=== PATIENT | female | born 1990 | race American Indian/Alaskan Native ===

== ENCOUNTER 2016-08-22 16:37 | Emergency (ER) | payer SELFPAY ==
[2016-08-22 17:48] VITALS: BP 115/74
[2016-08-22 20:24] LABS: Basophils % (Auto) 0.8 % (0.0-1.8); Hematocrit 44.5 % (30.3-42.9); Hemoglobin 14.2 gm/dl (10.1-14.3); Mean Corpuscular HGB Conc 32 % (30-34); Mean Corpuscular Volume 74 fl (79-97); Platelet Count 344 K/mm3 (140-440); Red Cell Distribution Width 16.7 % (13.2-15.2); White Blood Count 10.7 K/mm3 (4.5-11.0)
[2016-08-22 20:25] LABS: Mean Corpuscular Hemoglobin 24 pg (28-32)
[2016-08-22 20:34] LABS: Anion Gap 18 mmol/L; BUN/Creatinine Ratio 7.14; Blood Urea Nitrogen 5 mg/dL (7-17); Calcium 9.7 mg/dL (8.4-10.2); Carbon Dioxide 24 mmol/L (22-30); Chloride 100.2 mmol/L (98-107); Creatine Kinase 80 units/L (30-135); Glucose 82 mg/dL (65-100); Lipase 19 units/L (13-60); Potassium 4.1 mmol/L (3.6-5.0); Sodium 138 mmol/L (137-145)
[2016-08-22 20:41] LABS: Creatine Kinase MB < 1.0 ng/mL (0.0-4.0)
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
--- NOTE | 2016-08-22 20:59 | XRay Report ---
FINAL REPORT PROCEDURE: XR CHEST ROUTINE 2V TECHNIQUE: PA and lateral chest radiographs were obtained. CPT 90357 HISTORY: Chest Pain COMPARISON: No prior studies are available for comparison. FINDINGS: Heart: Normal. Mediastinum/Vessels: Normal. Lungs/Pleural space: Normal. Bony thorax: No acute osseous abnormality. Other: IMPRESSION: Normal examination.
[2016-08-22 21:28] LABS: Urine Drugs of Abuse Note Disclamer
== END 2016-08-22 21:57 | disposition left against medical advice (07) ==
LOC: ED 16:37
DX: R07.2 Precordial pain (principal); J45.909 Unspecified asthma, uncomplicated; D64.9 Anemia, unspecified; F17.200 Nicotine dependence, unspecified, uncomplicated; Z91.010 Allergy to peanuts
CPT/HCPCS: 36415; 71020; 80048; 80307; 81025; 82550; 82553; 83690; 84484; 85025; 93005; 93010; 99284

== ENCOUNTER 2017-08-29 15:50 | Emergency (ER) | payer SELFPAY ==
[2017-08-29] MEDS ORDERED: LIDOCAINE VISCOUS 2% PO ONE (18:00)
[2017-08-29] MEDS ORDERED: ZOFRAN ODT PO ONE (18:00)
[2017-08-29] MEDS ORDERED: ALUM-MAG HYDROX-SIMETH 200-200-20MG/5ML PO ONE (18:00)
--- NOTE | 2017-08-29 18:03 | Emergency Department Report ---
Blank Doc - Documentation Documentation: 27-year-old female this is also complaining of 2 days of epigastric pain and vomiting. She has had several episodes of bloody nonbilious vomitus. She has complaints of burning epigastric pain. She is able to tolerate liquids but not food. No previous abdominal surgeries Abdominal exam right upper quadrant tenderness but maximal tenderness in epigastric area Labs ordered: CBC, CMP, lipase, , UA, urine Meds ordered: Maalox, viscous lidocaine, Zofran Imaging ordered: Abdominal ultrasound mid-level to follow
[2017-08-29 18:23] LABS: Basophils # (Auto) 0.1 K/mm3 (0.0-0.1); Basophils % (Auto) 0.4 % (0.0-1.8); Eosinophils # (Auto) 0.4 K/mm3 (0.0-0.4); Eosinophils % (Auto) 2.7 % (0.0-4.3); Hemoglobin 12.7 gm/dl (10.1-14.3); Lymphocytes # (Auto) 1.9 K/mm3 (1.2-5.4); Lymphocytes % (Auto) 13.8 % (13.4-35.0); Monocytes # (Auto) 0.9 K/mm3 (0.0-0.8)
[2017-08-29 18:27] LABS: Mean Corpuscular HGB Conc 32 % (30-34); Mean Corpuscular Hemoglobin 25 pg (28-32); Mean Corpuscular Volume 77 fl (79-97); Platelet Count 294 K/mm3 (140-440); Red Blood Count 5.18 M/mm3 (3.65-5.03); Red Cell Distribution Width 14.2 % (13.2-15.2)
[2017-08-29 18:36] LABS: Bilirubin,Urine NEG (Negative); Blood,Urine NEG (Negative); Color,Urine Straw (Yellow); Protein,Urine <15 mg/dL mg/dL (Negative); Urobilinogen,Urine < 2.0 mg/dL (<2.0)
[2017-08-29 18:38] LABS: HCG Qualitative,Urine Negative (Negative)
[2017-08-29 19:01] LABS: Alanine Aminotransferase 11 units/L (7-56); Albumin 4.3 g/dL (3.9-5); BUN/Creatinine Ratio 8; Blood Urea Nitrogen 5 mg/dL (7-17); Hemolysis Index 8; Lipase 10 units/L (13-60)
--- NOTE | 2017-08-29 19:01 | Ultrasound Report ---
FINAL REPORT EXAM: US ABDOMEN COMPLETE HISTORY: epigastric pain vomiting TECHNIQUE: Ultrasound examination of the abdomen PRIORS: None. FINDINGS: The visible portion of the following structures reveal: Liver: No focal lesion.No enlargement. Gallbladder: No pericholecystic fluid.No evidence of wall thickening.No calculus. Common bile duct: Normal caliber. Pancreas: No focal abnormality in the visible portion. Right kidney: No hydronephrosis.No solid mass.No definite calculus. Left kidney: No hydronephrosis.No solid mass.No definite calculus. Spleen: No enlargement.No focal lesion. Ascites: None Abdominal aorta: Normal caliber. IVC: Normal caliber. IMPRESSION: No evidence of acute pathology
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
[2017-08-29] MEDS ORDERED: NACL 0.9% 1000 ML 1,000 ML IV ONE (19:08)
[2017-08-29 20:24] VITALS: BP 122/76
== END 2017-08-29 20:28 | disposition home or self-care (01) ==
LOC: ED 15:50
DX: K52.9 Noninfective gastroenteritis and colitis, unspecified (principal); G43.909 Migraine, unspecified, not intractable, without status migrainosus; F17.200 Nicotine dependence, unspecified, uncomplicated
CPT/HCPCS: 36415; 76700; 80053; 81001; 81025; 83690; 85025; 99284; Q0162

== ENCOUNTER 2018-09-24 10:53 | Emergency (ER) | payer SELFPAY ==
[2018-09-24 13:01] VITALS: BP 110/57
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
== END 2018-09-24 14:00 | disposition home or self-care (01) ==
LOC: ED 10:53
DX: S06.0X9A Concussion with loss of consciousness of unspecified duration, initial encounter (principal); R55 Syncope and collapse; G43.909 Migraine, unspecified, not intractable, without status migrainosus; D64.9 Anemia, unspecified; J45.909 Unspecified asthma, uncomplicated; Z90.89 Acquired absence of other organs; Z91.010 Allergy to peanuts; X58.XXXA Exposure to other specified factors, initial encounter; Y93.89 Activity, other specified; Y92.89 Other specified places as the place of occurrence of the external cause; Y99.8 Other external cause status
CPT/HCPCS: 70450

== ENCOUNTER 2019-06-26 17:06 | Emergency (ER) | payer SELFPAY ==
[2019-06-26 18:08] LABS: HCG Qualitative,Urine Positive (Negative)
[2019-06-26 18:09] LABS: Bilirubin,Urine NEG (Negative); Blood,Urine NEG (Negative); Color,Urine Yellow (Yellow); Mucus,Urine FEW /HPF; Protein,Urine <15 mg/dL mg/dL (Negative)
--- NOTE | 2019-06-26 19:04 | Event Note ---
ED Screening Note ED Screening Note: The patient was seen in triage for nd lower abdominal pain /cramping. no bleeding. no fever or chills .no dysuria Labs/imaging ordered to evaluate for a cause of this complaint. Vital signs reviewed, patient awake and alert in NAD. This initial assessment/diagnostic orders/clinical plan/treatment(s) is/are subject to change based on patients health status, clinical progression and re- assessment by fellow clinical providers in the ED. Further treatment and workup at subsequent clinical providers discretion. Patient/guardian urged not to elope from the ED as their condition may be serious if not clinically assessed and managed. Initial orders include:
[2019-06-26 21:21] LABS: Hematocrit 38.9 % (30.3-42.9); Hemoglobin 12.4 gm/dl (10.1-14.3); Mean Corpuscular HGB Conc 32 % (30-34); Mean Corpuscular Volume 76 fl (79-97); Platelet Count 319 K/mm3 (140-440); Red Blood Count 5.12 M/mm3 (3.65-5.03); Red Cell Distribution Width 16.8 % (13.2-15.2)
[2019-06-26 21:34] LABS: Alanine Aminotransferase 14 units/L (7-56); Albumin 4.5 g/dL (3.9-5); BUN/Creatinine Ratio 9; Blood Urea Nitrogen 6 mg/dL (7-17); Calcium 9.3 mg/dL (8.4-10.2); Hemolysis Index 29
[2019-06-26 21:54] LABS: Basophils % (Manual) 0 % (0.0-1.8); Total Cells Counted 100
[2019-06-26 21:55] LABS: Anisocytosis 1+; Hypochromasia 1+; Ovalocytes Few; Platelet Estimate Consistent w Auto; Poikilocytosis 1+
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
[2019-06-26 22:41] VITALS: BP 110/60
== END 2019-06-26 22:20 | disposition home or self-care (01) ==
LOC: ED 17:06
DX: O26.891 Other specified pregnancy related conditions, first trimester (principal); Z3A.01 Less than 8 weeks gestation of pregnancy; Z91.010 Allergy to peanuts; O99.511 Diseases of the respiratory system complicating pregnancy, first trimester; O99.281 Endocrine, nutritional and metabolic diseases complicating pregnancy, first trimester; Z86.2 Personal history of diseases of the blood and blood-forming organs and certain disorders involving the immune mechanism; Z87.891 Personal history of nicotine dependence; Z90.89 Acquired absence of other organs; Z79.899 Other long term (current) drug therapy
CPT/HCPCS: 36415; 80053; 81001; 81025; 84702; 85007; 85025; 86900; 86901; 99283

== ENCOUNTER 2019-07-06 23:36 | Emergency (ER) | payer SELFPAY ==
[2019-07-06 23:43] VITALS: BP 107/53
[2019-07-07 00:19] LABS: Basophils # (Auto) 0.1 K/mm3 (0.0-0.1); Basophils % (Auto) 0.7 % (0.0-1.8); Eosinophils # (Auto) 0.4 K/mm3 (0.0-0.4); Eosinophils % (Auto) 3.7 % (0.0-4.3); Hematocrit 35.6 % (30.3-42.9); Hemoglobin 11.8 gm/dl (10.1-14.3); Lymphocytes # (Auto) 2.8 K/mm3 (1.2-5.4); Lymphocytes % (Auto) 25.4 % (13.4-35.0); Mean Corpuscular HGB Conc 33 % (30-34); Mean Corpuscular Volume 75 fl (79-97); Monocytes # (Auto) 0.7 K/mm3 (0.0-0.8); Monocytes % (Auto) 6.7 % (0.0-7.3); Platelet Count 287 K/mm3 (140-440); Red Blood Count 4.73 M/mm3 (3.65-5.03); Red Cell Distribution Width 16.6 % (13.2-15.2)
[2019-07-07 01:09] LABS: Bacteria,Urine 1+ /HPF (Negative); Bilirubin,Urine NEG (Negative); Blood,Urine LG (Negative); Color,Urine Yellow (Yellow); Mucus,Urine FEW /HPF; Protein,Urine <15 mg/dL mg/dL (Negative); Urobilinogen,Urine < 2.0 mg/dL (<2.0)
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
--- NOTE | 2019-07-07 06:18 | Ultrasound Report ---
US OB <= 14 weeks fetus, US OB transvaginal INDICATION / CLINICAL INFORMATION: +preg with vag bleeding. COMPARISON: None available. FINDINGS: No intrauterine was visualized. Uterus is normal in size. There is a 4.3 cm fibroid in the posterior uterine body. Endometrial thickness is 8 mm. The ovaries are normal in size. There is a 1.1 cm complex appearing lesion in the right ovary. The left ovary is normal in appearance. IMPRESSION: 1. No evidence for intrauterine 2. 4.3 cm uterine fibroid 3. 1.1 cm complex area in the right ovary Signer Name: Ten Tolliver MD FACR Signed: 07/07/2019 6:14 AM Workstation Name: [id number]
[2019-07-07] MEDS ORDERED: HYDROcodone/ACETAMINOPHEN 7.5-325MG TAB PO ONE (06:35)
[2019-07-07] MEDS ORDERED: HYDROcodone/ACETAMINOPHEN 10-325MG TAB ONE (06:36)
[2019-07-07] MEDS ORDERED: HYDROcodone/ACETAMINOPHEN 10-325MG TAB PO ONE (06:37)
== END 2019-07-07 07:32 | disposition home or self-care (01) ==
LOC: ED 23:36
DX: O03.9 Complete or unspecified spontaneous abortion without complication (principal); O23.41 Unspecified infection of urinary tract in pregnancy, first trimester; O99.011 Anemia complicating pregnancy, first trimester; O99.511 Diseases of the respiratory system complicating pregnancy, first trimester; O21.9 Vomiting of pregnancy, unspecified; J45.909 Unspecified asthma, uncomplicated; Z3A.01 Less than 8 weeks gestation of pregnancy; Z79.899 Other long term (current) drug therapy; Z91.010 Allergy to peanuts; Z90.49 Acquired absence of other specified parts of digestive tract
CPT/HCPCS: 36415; 76801; 76817; 81001; 84702; 84703; 85025; 86850; 86900; 86901; 87076; 87086; 87186

== ENCOUNTER 2020-02-14 12:55 | Emergency (ER) | payer MEDICAID ==
--- NOTE | 2020-02-14 13:22 | Emergency Department Report ---
Blank Doc - Documentation Documentation: 29-year-old female that presents with vaginal bleeding and pelvic pain. Stated is 4 weeks . Patient also stated has anxiety. Denies any SI/HI. This initial assessment/diagnostic orders/clinical plan/treatment(s) is/are subject to change based on patient's health status, clinical progression and re- assessment by fellow clinical providers in the ED. Further treatment and workup at subsequent clinical providers discretion. Patient/guardians urged not to elope from the ED as their condition may be serious if not clinically assessed and managed. Initial orders include: 1- Patient sent to [facility] for further evaluation and treatment 2- labs 3- UA 4- US OB
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
[2020-02-14 14:05] LABS: Basophils % (Auto) 0.4 % (0.0-1.8); Eosinophils # (Auto) 0.2 K/mm3 (0.0-0.4); Eosinophils % (Auto) 2.2 % (0.0-4.3); Hematocrit 35.6 % (30.3-42.9); Hemoglobin 11.7 gm/dl (10.1-14.3); Lymphocytes # (Auto) 1.2 K/mm3 (1.2-5.4); Lymphocytes % (Auto) 13.7 % (13.4-35.0); Mean Corpuscular HGB Conc 33 % (30-34); Mean Corpuscular Volume 77 fl (79-97); Monocytes # (Auto) 0.5 K/mm3 (0.0-0.8); Monocytes % (Auto) 5.5 % (0.0-7.3); Platelet Count 230 K/mm3 (140-440); Red Blood Count 4.61 M/mm3 (3.65-5.03); Red Cell Distribution Width 15.1 % (13.2-15.2)
[2020-02-14 14:25] LABS: Blood Urea Nitrogen 3 mg/dL (7-17); Hemolysis Index 3
[2020-02-14 14:27] LABS: BUN/Creatinine Ratio 6
[2020-02-14 14:45] VITALS: BP 105/61
--- NOTE | 2020-02-14 15:23 | Ultrasound Report ---
ULTRASOUND OBSTETRIC INDICATION / CLINICAL INFORMATION: pelvic pain with vaginal bleeding. TECHNIQUE: Transabdominal. COMPARISON: None available. FINDINGS: GESTATIONAL SAC: Well-defined oval shape and intrauterine in location. YOLK SAC: No significant abnormality. EMBRYO/FETUS: No significant abnormality. - [place]-Rump Length = 5.72 cm = 12.2 weeks.days - Heart Rate, beats per minute (if present) = 166 ADNEXA: No significant abnormality. FREE FLUID: None. ADDITIONAL FINDINGS: There is a 5.8 cm fibroid in the posterior uterus. IMPRESSION: 1. Single, living intrauterine with estimated sonographic age of 12.2 weeks.days. Signer Name: Jamal Vo MD Signed: 02/14/2020 3:19 PM Workstation Name: [id number]
== END 2020-02-14 15:58 | disposition home or self-care (01) ==
LOC: ED 12:55
DX: O20.8 Other hemorrhage in early pregnancy (principal); O26.891 Other specified pregnancy related conditions, first trimester; R10.9 Unspecified abdominal pain; G43.909 Migraine, unspecified, not intractable, without status migrainosus; J45.909 Unspecified asthma, uncomplicated; Z3A.01 Less than 8 weeks gestation of pregnancy; Z90.89 Acquired absence of other organs; Z79.899 Other long term (current) drug therapy; Z91.010 Allergy to peanuts
CPT/HCPCS: 36415; 76801; 80048; 80320; 84702; 85025; 86900; 86901; G0480